=== PATIENT | male | born 1955 | race Caucasian/White ===

== ENCOUNTER 2017-01-01 11:39 | Emergency (ER) | payer OTHER ==
[2017-01-01 11:45] VITALS: RESP 18; TEMP 98.1; O2SAT 97
[2017-01-01] MEDS ORDERED: ONDANSETRON 4 MG/2 ML VIAL IVP ONE (12:04)
[2017-01-01] MEDS ORDERED: NS 1,000 ML IV ONE ×2 (12:04→12:09)
[2017-01-01 12:09] LABS: % IMMATURE GRANULYOCYTES 0.4 % (0.0-1.1); ABSOLUTE IMMATURE GRANULOCYTES 0.02 10^3/uL (0.00-0.10); ADD DIFF? NO; ADD MORPH? NO; ADD SCAN? NO; ATYPICAL LYMPHOCYTE FLAG 0 (0-99); FRAGMENT RBC FLAG 0 (0-99); HEMATOCRIT 45.9 % (40.0-51.0); HEMOGLOBIN 15.3 g/dL (13.7-17.5); LEFT SHIFT FLG 0 (0-99); LIPEMIA HEMOLYSIS FLAG 80 (0-99); MEAN CELL HEMOGLOBIN 32.1 pg (27.9-34.1); MEAN CELL HEMOGLOBIN CONCENTR. 33.3 g/dL (32.4-36.7); MEAN CELL VOLUME 96.2 fL (81.5-99.8); MEAN PLATELET VOLUME 10.6 fL (8.7-11.7); PLATELET CLUMPS FLAG 0 (0-99); PLATELET COUNT 218 10^3/uL (150-400); RED BLOOD CELL COUNT 4.77 10^6/uL (4.40-6.38)
[2017-01-01] MEDS ORDERED: KETOROLAC 15 MG/1 ML SDV IVP ONE (12:09)
[2017-01-01] MEDS ORDERED: ACETAMINOPHEN 500 MG TAB PO ONE (12:09)
[2017-01-01] MEDS ORDERED: KETAMINE 500 MG/10 ML VIAL NASAL ONE (12:09)
[2017-01-01 12:12] LABS: COLOR PALE YELLOW; LEUKOCYTE ESTERASE,URINE NEGATIVE (NEGATIVE); NITRITE,URINE NEGATIVE (NEGATIVE)
--- NOTE | 2017-01-01 12:16 | EDPHY ---
H & P Stated Complaint: R flank pain x 1 day "I think I have a kidney stones" Time Seen by Provider: 01/01/17 12:08 HPI/ROS: CHIEF COMPLAINT: Possible kidney stone, flank pain HISTORY OF PRESENT ILLNESS: The patient is a 61 y/o male with a history of kidney stones complaining of waxing and waning right flank pain onset 1 day ago. His pain oscillates between a "bad ache" and feeling like "someone stabbed me." Pain sometimes radiates to his groin during the spikes of pain. He denies associated abdominal pain, dysuria, fever, or hematuria. His last kidney stone was several years ago and he is not currently followed by a urologist. REVIEW OF SYSTEMS: Constitutional: No fever, no chills Eyes: No visual changes ENT: No sore throat Respiratory: No cough, no shortness of breath Cardiac: No chest pain Gastrointestinal: No nausea, no vomiting, no abdominal pain Genitourinary: No hematuria, no dysuria Musculoskeletal: No leg pain or swelling Skin: No rash Neurological: No headache, no numbness, no weakness Psychiatric: No depression - Personal History Current Tetanus Diphtheria and Acellular Pertussis (TDAP): Yes - Medical/Surgical History PMH: PMH includes: 1. Asthma 2. Kidney stones 3. Cardiac stent Hx Asthma: Yes Other PMH: kidney stones - Social History Additional Social History: , at bedside. PCP: Dr. Wolfe - Physical Exam Exam: General Appearance: Alert, no distress Eyes: Pupils equal and round, no conjunctival pallor or injection ENT, Mouth: Mucous membranes moist Neck: Normal inspection Respiratory: Lungs are clear to auscultation Cardiovascular: Regular rate and rhythm Gastrointestinal: Abdomen is soft and non- tender Back: Right CVA tenderness to percussion and light touch Neurological: A&O, nonfocal, normal gait Skin: Warm and dry, no rash Extremities: Nontender, no pedal edema Psychiatric: Mood and affect normal Constitutional: Initial Vital Signs Temperature (C) 36.7 C 01/01/17 11:41 Heart Rate 75 01/01/17 11:41 Respiratory Rate 18 01/01/17 11:41 Blood Pressure 140/104 H 01/01/17 11:41 O2 Sat (%) 97 01/01/17 11:41 O2 Delivery Mode Room Air Allergies/Adverse Reactions: cefaclor [From Ceclor] Allergy (Verified 01/01/17 12:14) Medical Decision Making - Diagnostics Imaging Results: Abdomen/Pelvis CT 01/01/17 12:22 Impression: 1. Nonobstructive calculus mid right kidney. 2. 3 mm calculus distal left ureter above the UVJ appears to be partially obstructive with only mild dilatation of the left ureter. 3. Moderate hepatic steatosis. 4. Enlarged prostate. 5. Moderate hiatal hernia with some thickening of the distal esophagus. Rule out mild esophagitis. 6. Reticular nodular pattern at the lung bases has progressed since the prior study. Imaging: Discussed imaging studies w/ housecalls nurse Radiologist, I viewed and interpreted images myself ED Course/Re-evaluation: This is a well-appearing 61 y/o male with a remote history of kidney stones complaining of a one-day history of waxing and waning right flank pain that feels similar to previous stones. He has right CVA tenderness on exam. No evidence of overlying rash. Plan for UA, IV, basic labs, abdominal CT, and symptom management. 1000mg PO Tylenol, 1L IV NS, 4mg IV Zofran, 15mg IV Toradol administered for pain. Imaging indicated due to patient's remote history of kidney stones and clinical findings on exam with normal UA. 50mg IN Ketamine administered for pain. CT does not show evidence of kidney stone on the right, though he does have a small stone on the left, which appears to be asymptomatic. On reassessment, he states his pain has resolved. It's possible he already passed the stone. Abd soft/NT. Plan to monitor for a while longer to see if symptoms return. On reeval, no pain present. Will d/c home. Likely passed kidney stone on right. Differential Diagnosis: includes though not limited to pyelo, renal colic, AAA, cholecystitis, pancreatitis, SBO - Data Points Laboratory Results: Laboratory Results 01/01/17 11:57 01/01/17 11:57 Medications Given: Discontinued Medications Acetaminophen (Tylenol) 1,000 mg PO EDNOW ONE Stop: 01/01/17 12:10 Last Admin: 01/01/17 12:19 Dose: 1,000 mg Sodium Chloride (Ns) 1,000 mls @ 0 mls/hr IV ONCE ONE PRN Reason: Wide Open Stop: 01/01/17 12:05 Last Admin: 01/01/17 12:11 Dose: 1,000 mls Sodium Chloride (Ns) 1,000 mls @ 3,000 mls/hr IV EDNOW ONE Stop: 01/01/17 12:28 Last Admin: 01/01/17 12:47 Dose: Not Given Ketamine HCl (Ketamine) 50 mg NASAL EDNOW ONE Stop: 01/01/17 12:10 Last Admin: 01/01/17 12:53 Dose: 50 mg Ketorolac Tromethamine (Toradol) 15 mg IVP EDNOW ONE Stop: 01/01/17 12:10 Last Admin: 01/01/17 12:20 Dose: 15 mg Ondansetron HCl (Zofran) 4 mg IVP EDNOW ONE Stop: 01/01/17 12:05 Last Admin: 01/01/17 12:12 Dose: 4 mg Departure - Departure Disposition: Home, Routine, Self-Care Clinical Impression: Right flank pain Condition: Good Instructions: Kidney Stones (ED), How to Strain Your Urine (ED), Flank Pain (ED ) Additional Instructions: 1. Take 600mg ibuprofen every 6-8 hours as needed for pain over the next few days. 2. Strain your urine as directed. 3. Follow up with your urologist or primary care provider if symptoms return. 4. Return to the ED for severe pain, fever, uncontrollable vomiting, or other worsening of condition. 5. Have your BP rechecked. It is running high today. Referrals: Andrei Wolfe MD [Primary Care Provider] - As per Instructions Adeel Rodney MD [Medical Doctor] - As per Instructions Report Scribed for: Jacy Cho Report Scribed by: Danni Haddad Date of Report: 01/01/17 Time of Report: 12:12 Physician Review and Approval Statement: 01/01/17 12:13 Portions of this note were transcribed by a medical staff assistant. I personally performed a history, physical exam, medical decision making, and confirmed accuracy of information the transcribed note.
[2017-01-01 12:21] LABS: ANION GAP 14 mEq/L (8-16); CALCIUM 9.5 mg/dL (8.5-10.4); CARBON DIOXIDE 25 mEq/l (22-31); CHLORIDE 102 mEq/L (97-110); CREATININE 0.8 mg/dL (0.7-1.3); GLOMERULAR FILTRATION RATE > 60; GLUCOSE 89 mg/dL (70-100); SODIUM 141 mEq/L (134-144)
[2017-01-01 13:02] VITALS: PULSE 64
[2017-01-01 14:37] VITALS: BP 164/101
== END 2017-01-01 14:37 | disposition home or self-care (01) ==
DX: R10.9 Unspecified abdominal pain (principal); J45.909 Unspecified asthma, uncomplicated
CPT/HCPCS: 96374; J1885; J2405

== ENCOUNTER 2017-09-15 08:34 | Emergency (ER) | payer OTHER ==
[2017-09-15 08:40] VITALS: TEMP 97.5
--- NOTE | 2017-09-15 08:53 | EDPHY ---
HPI/HX/ROS/PE/MDM Narrative: CHIEF COMPLAINT: Left flank pain HPI: This patient is a 62 y/o male with history of kidney stones complaining of left flank pain. He woke up with pain and shaking around 2-3am. He tried a heating pad which relieved his pain slightly. His discomfort feels exactly like his two prior kidney stones and states it feels like "someone stabbed me in the kidney with an ice pick thing". His pain is now not as stabbing as when it woke him this morning, but persists. He is nauseous. The patient has tried to drink lots of water and states both prior stones passed on their own without procedural intervention. He denies fever, vomiting diarrhea, melena, chest pain, shortness of breath, or other associated symptoms. REVIEW OF SYSTEMS: Aside from elements discussed in the HPI, a comprehensive 10-point review of systems was reviewed and is negative. PMH: Asthma. Kidney stones. Stent in circumflex artery placed 15 years ago. Past medical records reviewed including ED visit for kidney stones 01/01/17. SOCIAL HISTORY: Works in [employer]. . Lives in [place]. PHYSICAL EXAM: General:Patient is alert, in no acute distress. ENT:Eyes are normal to inspection. ENT inspection normal. Neck: Normal inspection. Full range of motion. Respiratory:No respiratory distress. Breath sounds normal bilaterally. Cardiovascular: Regular rate and rhythm. Strong peripheral pulses. Normal cap refill. Abdomen:The abdomen is nontender to palpation. There are no peritoneal signs. There are normal bowel sounds. Back: Normal to inspection. Left CVA tenderness. Skin: Normal color. No rash. Warm and dry. Extremities: Normal appearance. Full range of motion. Neuro: Oriented x3. Normal motor function. Normal sensory function. ED Course: This 62 y/o male presents with left flank pain. Left CVA tenderness on exam. Plan for labs including CBC, chemistries, UA. Plan to administer 30mg IV Toradol. Discussed imaging studies including x-ray, US, and CT. Discussed risks and benefits of CT including finding the location and size of the stone. Plan to start with x-ray abdomen. Past medical records reviewed. In December 2016, the patient was evaluated for similar symptoms on the right side. CT at that time revealed a 3 mm calculus in the distal left ureter above the UVJ. He was asymptomatic on the left at that time, and no stone was noted on the right where his flank pain was located. 10:22 Reassessed patient. He agrees to CT abdomen/pelvis for further evaluation. 11:[address] Gilliland, radiologist. CT negative for acute processes. Reassessed patient. Discussed results. Plan to d/c home in good condition with prescription for Percocet for pain relief. Follow up and return precautions discussed. He is comfortable with this plan. MDM: This patient presents with acut3e left flank pain that feels exactly like prior kidney stone. His UA is negative however, and his WBC is elevated. After discussion with patient, we elected to proceed with a CTAP which surprisingly shows no evidence of stone, and no explanation for left flank pain. The etiology of his pain is unclear, but given labs and negative CTAP, I see no signs of appendicitis, diverticulitis, rib fracture, kidney stone or bowel obstruction. He has no chest pain to suggest PE or ACS. I informed patient of these results as well as the fact that the cause of his symptoms remains unknown. We agreed on a plan to be discharged as he is feeling better, and to return should symptoms increase or change. I see no indication for empiric antibiotics. - Data Points Imaging Results: Imaging Impressions Abdomen X-Ray 09/15/17 09:04 Impression: 1. Moderate proximal colonic constipation, with no mechanical obstruction. 2. Retrocardiac hiatal hernia. Abdomen/Pelvis CT 09/15/17 10:21 Impression: 1. Nonobstructive right nephrolithiasis. 2. No left nephrolithiasis or hydronephrosis in either kidney. 3. Stable mild mesenteric misting without bowel obstruction or significant adenopathy. 4. Atherosclerotic aorta without aneurysm. 5. Sigmoid diverticulosis without diverticulitis or bowel obstruction. Attention: This CT examination is specifically designed to evaluate patients who are clinically suspected of having acute obstructive uropathy. This examination does not use radiographic contrast, and as such, provides only a limited evaluation of the abdomen, pelvis and retroperitoneum. If there is further clinical suspicion for pathological conditions other than obstructive uropathy, a complete CT evaluation of the abdomen and pelvis utilizing intravenous, oral, and rectal contrast should be considered. Findings and recommendations discussed with Emergency Department physician, Delfin Sousa MD at 1100 hours, 09/15/2017. Final report concurs with initial preliminary interpretation. Laboratory Results: Laboratory Results 09/15/17 08:50 09/15/17 08:50 09/15/17 09/15/17 09/15/17 08:50 08:50 08:40 WBC 13.34 10^3/uL H 10^3/uL (3.80-9.50) RBC 5.01 10^6/uL 10^6/uL (4.40-6.38) Hgb 15.1 g/dL g/dL (13.7-17.5) Hct 45.4 % % (40.0-51.0) MCV 90.6 fL fL (81.5-99.8) MCH 30.1 pg pg (27.9-34.1) MCHC 33.3 g/dL g/dL (32.4-36.7) RDW 19.9 % H % (11.5-15.2) Plt Count 239 10^3/uL 10^3/uL (150-400) MPV 10.6 fL fL (8.7-11.7) Neut % (Auto) 78.1 % H % (39.3-74.2) Lymph % (Auto) 10.4 % L % (15.0-45.0) Menard % (Auto) 7.6 % % (4.5-13.0) Eos % (Auto) 2.8 % % (0.6-7.6) Baso % (Auto) 0.6 % % (0.3-1.7) Nucleat RBC Rel Count 0.0 % % (0.0-0.2) Absolute Neuts (auto) 10.40 10^3/uL H 10^3/uL (1.70-6.50) Absolute Lymphs (auto) 1.39 10^3/uL 10^3/uL (1.00-3.00) Absolute Monos (auto) 1.02 10^3/uL H 10^3/uL (0.30-0.80) Absolute Eos (auto) 0.38 10^3/uL 10^3/uL (0.03-0.40) Absolute Basos (auto) 0.08 10^3/uL 10^3/uL (0.02-0.10) Absolute Nucleated RBC 0.00 10^3/uL 10^3/uL (0-0.01) Immature Gran % 0.5 % % (0.0-1.1) Immature Gran # 0.07 10^3/uL 10^3/uL (0.00-0.10) Sodium 140 mEq/L mEq/L (135-145) Potassium 4.1 mEq/L mEq/L (3.5-5.2) Chloride 103 mEq/L mEq/L (97-110) Carbon Dioxide 25 mEq/l mEq/l (22-31) Anion Gap 12 mEq/L mEq/L (8-16) BUN 12 mg/dL mg/dL (7-23) Creatinine 0.8 mg/dL mg/dL (0.7-1.3) Estimated GFR > 60 Glucose 114 mg/dL H mg/dL (70-100) Calcium 9.2 mg/dL mg/dL (8.5-10.4) Urine Color YELLOW Urine Appearance CLEAR Urine pH 7.0 (5.0-7.5) Ur Specific [place] 1.010 (1.002-1.030) Urine Protein NEGATIVE (NEGATIVE) Urine Ketones NEGATIVE (NEGATIVE) Urine Blood NEGATIVE (NEGATIVE) Urine Nitrate NEGATIVE (NEGATIVE) Urine Bilirubin NEGATIVE (NEGATIVE) Urine Urobilinogen NEGATIVE EU EU (0.2-1.0) Ur Leukocyte Esterase NEGATIVE (NEGATIVE) Urine Glucose NEGATIVE (NEGATIVE) Medications Given: Discontinued Medications Sodium Chloride (Ns) 1,000 mls @ 0 mls/hr IV EDNOW ONE; Wide Open PRN Reason: Protocol Stop: 09/15/17 09:04 Last Admin: 09/15/17 09:17 Dose: 1,000 mls Ketorolac Tromethamine (Toradol) 30 mg IVP EDNOW ONE Stop: 09/15/17 09:06 Last Admin: 09/15/17 09:15 Dose: 30 mg General Initial Vital Signs: Initial Vital Signs Temperature (C) 36.4 C 09/15/17 08:38 Heart Rate 94 09/15/17 08:38 Respiratory Rate 18 09/15/17 08:38 Blood Pressure 120/84 H 09/15/17 08:38 O2 Sat (%) 92 09/15/17 08:38 O2 Delivery Mode Room Air Allergies/Adverse Reactions: cefaclor [From Ceclor] Allergy (Verified 04/04/18 08:35) Home Medications: Medication Instructions Recorded Albuterol 09/15/17 Concerta 09/15/17 Hydroxyzine HCl 09/15/17 LORAZEPAM 09/15/17 Vytorin 10-10 mg Tablet 09/15/17 oxyCODONE/APAP 5/325 [Percocet 5 - 10 mg PO Q4-6PRN PRN #10 tab 09/15/17 5/325] Departure - Departure Disposition: Home, Routine, Self-Care Clinical Impression: Flank pain Condition: Good Instructions: Flank Pain (ED) Additional Instructions: Follow-up with your primary doctor within 72 hours. Return to the Emergency Department for worsening pain, fever, severe vomiting, change in character or severity of pain or other worsening of condition. Referrals: Andrei Wolfe MD [Primary Care Provider] - As per Instructions Adeel Cuevas MD [Medical Doctor] - As per Instructions Prescriptions: oxyCODONE/APAP 5/325 [Percocet 5/325] 5 - 10 mg PO Q4-6PRN PRN #10 tab PRN Reason: For Pain Report Scribed for: Delfin Sousa Report Scribed by: Leann Grey Date of Report: 09/15/17 Time of Report: 08:57 Physician Review and Approval Statement: Portions of this note were transcribed by an ED scribe. I personally performed the history, physical exam, and medical decision making; and confirm the accuracy of the information in the transcribed note.
[2017-09-15] MEDS ORDERED: NS 1,000 ML IV ONE (09:03)
[2017-09-15] MEDS ORDERED: KETOROLAC 30 MG/1 ML SDV IVP ONE (09:05)
[2017-09-15 09:13] LABS: PLATELET COUNT 239 10^3/uL (150-400)
[2017-09-15 10:14] VITALS: PULSE 85; RESP 16
[2017-09-15 12:08] VITALS: BP 136/74; O2SAT 96
== END 2017-09-15 12:08 | disposition home or self-care (01) ==
DX: R10.9 Unspecified abdominal pain (principal); J45.909 Unspecified asthma, uncomplicated; E86.9 Volume depletion, unspecified; Z95.5 Presence of coronary angioplasty implant and graft
CPT/HCPCS: 96374; J1885

== ENCOUNTER → 2018-10-24 | Outpatient (CLI) | payer OTHER | LOC: FIMAGING 12:26 → EDSTATUS 12:28 | PROVIDERS: ATTEND Internal Medicine | DX: K44.9 Diaphragmatic hernia without obstruction or gangrene (principal); J98.4 Other disorders of lung ==